=== PATIENT | male | born 1990 | race Caucasian/White ===

== ENCOUNTER 2016-12-28 14:31 | Inpatient (IN) | payer OTHER ==
[~2016-12-28] VITALS: Ht 170.1 cm; Wt 78.6 kg
[~2016-12-28 14:31] MED LIST: ATARAX,VISTARIL50 MG PO; CARBIDOPA/LEVOD1 TA1 PO; NEXIUM40 MG PO; OMEPRAZOLE40 MG PO; ZANTAC 150150 MG PO; ZOFRAN 4 MG ED2 TAB PO; ZUBSOLV 5.7-1.1 EACH SL
[2016-12-28 14:55] VITALS: BP 142/82
[2016-12-28 15:02] VITALS: BP 142/82
[2016-12-28 15:14] LABS: BASO # 0.1 10*3/uL (0.0-0.1); BASO % 0.8 % (0.0-1.0); EOS # 0.1 10*3/uL (0.0-0.4); EOS % 1.1 % (1.0-4.0); HEMATOCRIT 44.3 % (42.0-52.0); HEMOGLOBIN 14.1 g/dl (14.0-18.0); LYMPH % 16.2 % (27.0-41.0); MEAN CELL VOLUME 87.9 fl (80.0-94.0); MEAN CORPUSCULAR HGB CONC 31.8 g/dl (33.0-37.0); MONO # 0.2 10*3/uL (0.1-1.0); NEUT % 78.6 % (47.0-73.0); PLATELET COUNT AUTOMATED 298 10*3/uL (130-400); RED BLOOD COUNT 5.04 10*6/uL (4.50-5.90); RED CELL DISTRI WIDTH 13.1 % (0-14.5); WHITE BLOOD COUNT 6.4 10*3/uL (4.8-10.8)
[2016-12-28 15:23] LABS: PROTHROMBIN TIME 10.2 SECONDS (9.0-12.4)
[2016-12-28 15:30] LABS: ALBUMIN 3.8 gm/dl (3.1-4.5); ALKALINE PHOSPHATASE 120 U/L (45-117); BILIRUBIN, TOTAL 0.9 mg/dl (0.2-1.0); BUN 12 mg/dl (7-24); CARBON DIOXIDE 32 mmol/L (21-32); CHLORIDE 105 mmol/L (98-107); EST GLOM FILT AFRICAN AMERICAN > 60 ml/min; GLUCOSE 80 mg/dL (65-99); POTASSIUM 4.4 mmol/L (3.5-5.1); SGOT/AST 35 IU/L (3-35); SGPT/ALT 58 U/L (12-78); SODIUM 142 mmol/L (136-145); TOTAL PROTEIN 8.3 gm/dL (6.4-8.2)
[2016-12-28 15:46] LABS: BILIRUBIN NEGATIVE (NEGATIVE); BLOOD NEGATIVE (NEGATIVE); CLARITY CLEAR (CLEAR); COLOR YELLOW (YELLOW); GLUCOSE NEGATIVE (NEGATIVE); KETONE NEGATIVE (NEGATIVE); LEUKO ESTERASE NEGATIVE (NEGATIVE); NITRITE NEGATIVE (NEGATIVE); PH 5.5 (5.0-9.0); PROTEIN NEGATIVE (NEGATIVE); SPECIFIC GRAVITY 1.025 (1.005-1.030); UROBILINOGEN 0.2 E.U./dl (0.2-1.0)
[2016-12-28 15:58] LABS: BACTERIA TRACE
[2016-12-28 15:59] LABS: MUCOUS TRACE; RBC 0-2 rbc/hpf (0-2); URINE AMPHETAMINES < 1000 (1000ng/ml); URINE BARBITURATES < 200 (200ng/ml); URINE COCAINE < 300 (300ng/ml); URINE REFLEX COMMENT NO (NO); WBC 0-2 wbc/hpf (0-5)
[2016-12-28 20:11] VITALS: BP 119/76
[2016-12-29 00:41] VITALS: BP 114/54
[2016-12-29 03:52] VITALS: BP 116/58
[2016-12-29 08:00] VITALS: BP 124/84
[2016-12-29 08:09] LABS: BUN 16 mg/dl (7-24); CARBON DIOXIDE 28 mmol/L (21-32); CHLORIDE 107 mmol/L (98-107); EST GLOM FILT AFRICAN AMERICAN > 60 ml/min; GLUCOSE 101 mg/dL (65-99); POTASSIUM 4.8 mmol/L (3.5-5.1); SODIUM 140 mmol/L (136-145)
[2016-12-29 12:00] VITALS: BP 118/69
[2016-12-29 16:00] VITALS: BP 132/73
[2016-12-29 20:00] VITALS: BP 124/74
[2016-12-30 00:04] VITALS: BP 133/76
[2016-12-30 08:00] VITALS: BP 110/73
[2016-12-30 12:00] VITALS: BP 100/58; BP 129/72
[2016-12-30 16:00] VITALS: BP 119/79
[2016-12-30 20:00] VITALS: BP 132/76
[2016-12-31] VITALS: BP 117/69
[2016-12-31 06:00] LABS: BASO # 0.1 10*3/uL (0.0-0.1); EOS # 0.2 10*3/uL (0.0-0.4); EOS % 3.2 % (1.0-4.0); HEMATOCRIT 41.1 % (42.0-52.0); HEMOGLOBIN 13.3 g/dl (14.0-18.0); LYMPH # 2.5 10*3/uL (1.3-4.4); LYMPH % 40.8 % (27.0-41.0); MEAN CELL VOLUME 88.2 fl (80.0-94.0); MEAN CORPUSCULAR HGB 28.5 pg (27.0-31.0); MEAN CORPUSCULAR HGB CONC 32.4 g/dl (33.0-37.0); MEAN PLATELET VOLUME 9.2 fl (9.6-12.3); MONO # 0.5 10*3/uL (0.1-1.0); MONO % 7.3 % (3.0-9.0); NEUT # 2.9 10*3/uL (2.3-7.9); NEUT % 47.1 % (47.0-73.0); PLATELET COUNT AUTOMATED 347 10*3/uL (130-400); RED BLOOD COUNT 4.66 10*6/uL (4.50-5.90); RED CELL DISTRI WIDTH 13.1 % (0-14.5); WHITE BLOOD COUNT 6.2 10*3/uL (4.8-10.8)
[2016-12-31 06:22] LABS: EST GLOM FILT AFRICAN AMERICAN > 60 ml/min
[2016-12-31 08:00] VITALS: BP 109/79
[2016-12-31] MEDS ORDERED: ATARAX,VISTARIL50 MG PO (08:51)
[2016-12-31] MEDS ORDERED: METHOCARBAMOL750 M1 PO (08:51)
== END 2016-12-31 11:45 | disposition home or self-care (01) | DRG 896 ==
LOC: 4E 14:31
PROVIDERS: Internal Medicine; Internal Medicine Hospice and Palliative Medicine
DX: F11.23 Opioid dependence with withdrawal (principal); N17.0 Acute kidney failure with tubular necrosis; F41.9 Anxiety disorder, unspecified; B19.20 Unspecified viral hepatitis C without hepatic coma; Z83.3 Family history of diabetes mellitus; Z88.0 Allergy status to penicillin; Z88.2 Allergy status to sulfonamides; F12.10 Cannabis abuse, uncomplicated

== ENCOUNTER 2021-12-08 12:02 | Inpatient (IN) | payer OTHER ==
[~2021-12-08] VITALS: Ht 170.1 cm; Wt 69.9 kg
[~2021-12-08 12:02] MED LIST changes: +METHOCARBAMOL750 M1 PO
[2021-12-08 12:10] VITALS: BP 109/75
[2021-12-08 12:43] LABS: BASO % 0.6 % (0.0-1.0); EOS # 0.5 10*3/uL (0.0-0.4); EOS % 7.6 % (1.0-4.0); HEMATOCRIT 38.9 % (42.0-52.0); LYMPH # 1.5 10*3/uL (1.3-4.4); LYMPH % 22.3 % (27.0-41.0); MEAN CELL VOLUME 88.4 fl (80.0-94.0); MEAN CORPUSCULAR HGB 28.9 pg (27.0-31.0); MEAN CORPUSCULAR HGB CONC 32.6 g/dl (33.0-37.0); MEAN PLATELET VOLUME 9.1 fl (9.6-12.3); MONO # 0.4 10*3/uL (0.1-1.0); MONO % 5.9 % (3.0-9.0); NEUT # 4.2 10*3/uL (2.3-7.9); NEUT % 63.4 % (47.0-73.0); PLATELET COUNT AUTOMATED 263 10*3/uL (130-400); RED CELL DISTRI WIDTH 12.9 % (0-14.5); WHITE BLOOD COUNT 6.6 10*3/uL (4.8-10.8)
[2021-12-08 13:00] LABS: ALKALINE PHOSPHATASE 98 U/L (45-117); BUN 13 mg/dl (7-24); CHLORIDE 103 mmol/L (98-107); CREATININE 1.23 mg/dL (0.70-1.30); POTASSIUM 3.9 mmol/L (3.5-5.1); SGOT/AST 17 IU/L (3-35); SGPT/ALT 28 U/L (12-78); SODIUM 138 mmol/L (136-145)
[2021-12-08 13:10] LABS: ETHYL ALCOHOL < 3.0 mg/dl (<3)
[2021-12-08 14:02] LABS: URINE AMPHETAMINES < 1000 (1000ng/ml); URINE BARBITURATES < 200 (200ng/ml); URINE BENZODIAZEPINES < 200 (200ng/ml); URINE CANNABINOIDS (THC) > 50 (50ng/ml); URINE COCAINE < 300 (300ng/ml); URINE METHADONE < 300 (300ng/ml); URINE OPIATES < 300 (300ng/ml)
[2021-12-08 14:03] LABS: URINE PHENCYCLIDINE < 25 (25ng/ml)
[2021-12-08 17:31] VITALS: BP 119/75
[2021-12-08 20:00] VITALS: BP 114/81
[2021-12-09] VITALS: BP 122/72
[2021-12-09 08:00] VITALS: BP 115/67
[2021-12-09 12:00] VITALS: BP 118/74
[2021-12-09 16:00] VITALS: BP 121/77
[2021-12-09 20:00] VITALS: BP 126/76
[2021-12-10] VITALS: BP 129/85
[2021-12-10 08:00] VITALS: BP 129/82
[2021-12-10 12:00] VITALS: BP 111/73
[2021-12-10 16:00] VITALS: BP 122/84
[2021-12-10 20:00] VITALS: BP 124/80
[2021-12-11] VITALS: BP 132/82
[2021-12-11 08:00] VITALS: BP 125/84
[2021-12-11] MEDS ORDERED: NATURE'S BLEND F1 MG PO (09:07)
[2021-12-11] MEDS ORDERED: VITAMIN B-1100 M1 PO (09:07)
== END 2021-12-11 09:39 | disposition home or self-care (01) | DRG 773 ==
LOC: ED 12:02 → EDHOLD 13:03 → 5E 13:03
PROVIDERS: Emergency Medicine; ADMIT Internal Medicine; ATTEND Internal Medicine
DX: F11.23 Opioid dependence with withdrawal (principal); F12.10 Cannabis abuse, uncomplicated; F41.9 Anxiety disorder, unspecified; K21.9 Gastro-esophageal reflux disease without esophagitis; D64.9 Anemia, unspecified; Z88.0 Allergy status to penicillin; Z88.2 Allergy status to sulfonamides; Z79.899 Other long term (current) drug therapy; Z83.3 Family history of diabetes mellitus; Z82.49 Family history of ischemic heart disease and other diseases of the circulatory system